=== PATIENT | male | born 1965 | race Caucasian/White ===

== ENCOUNTER 2022-12-10 16:58 | Inpatient (IN) | payer SELFPAY ==
[2022-12-10] VITALS (23 sets, daily range): BP systolic 164; BP diastolic 117; PULSE 97–117; RESP 12–30; O2SAT 95–100
--- NOTE | ~2022-12-10 | US_ITS ---
EXAMINATION: US venous doppler [facility] DATE: 12/10/2022 20:02 INDICATION: +dimer, BLE swelling . TECHNIQUE: Grayscale images without and with compression and Doppler images of the bilateral lower ex tremity veins were obtained. COMPARISON: None FINDINGS: The right common femoral vein, profunda (deep) femoral vein, femoral vein, popliteal vein, peroneal v ein, posterior tibial veins, gastrocnemius vein, and greater saphenous vein are patent. The left common femoral vein, profunda (deep) femoral vein, femoral vein, popliteal vein, peroneal v ein, posterior tibial veins, gastrocnemius vein, and greater saphenous vein are patent. IMPRESSION: 1. Patent bilateral lower extremity veins. No evidence of deep venous thrombosis. Reviewed, dictated and finalized at location K. IMPRESSION: 1. Patent bilateral lower extremity veins. No evidence of deep venous thrombos is.
--- NOTE | ~2022-12-10 | XR_ITS ---
EXAMINATION: XR chest 2V Exam Date/Time: 12/10/2022 17:18 CDT HISTORY: SOB, CP, cough Comparison: None. RESULT: Lines, tubes, and devices: None. Lungs and pleura: Mild diffuse peripheral reticular opacities. Trace posterior costophrenic angle bl unting. Cardiomediastinal silhouette: Cardiomegaly. Other: No acute osseous or upper abdominal finding. IMPRESSION: Mild interstitial edema. Trace bilateral effusions. Cardiomegaly. Reviewed, dictated and finalized at location K.
--- NOTE | ~2022-12-10 | CT_ITS ---
EXAMINATION: CTA chest PE protocol DATE: 12/10/2022 19:16 INDICATION: CP, SOB, +dimer TECHNIQUE: Computed tomography angiography (CTA) of the chest was performed with 100 mL Omnipaque-350 intravenous contrast timed to evaluate the pulmonary arteries. Coronal maximum intensity projection 3D-reconstructions were created by the technologist. The dose-length product (DLP) was 250.24 mGy-cm. Automated exposure control and iterative reconstruction technique were employed. COMPARISON: X-ray chest, same date. FINDINGS: Lung parenchyma and airways: Minimal interlobular septal thickening. Bilateral dependent atelectasis/ edema. Pleura: Small volume right pleural fluid collection. Thoracic inlet, axillae and chest wall: Unremarkable. Thoracic aorta: Normal. Mediastinum: Normal. Heart and pericardium: Moderate cardiomegaly. Aortic valve calcification. Coronary artery calcifications: Absent. Upper abdomen: Cirrhotic liver changes. Mesenteric edema. Simple left renal cysts. Bones: No acute osseous finding. Presumed chronic moderate wedge deformity at L2. Pulmonary arteries: Study quality: Adequate. No pulmonary emboli detected. IMPRESSION: No CT evidence of acute pulmonary embolus. Mild interstitial edema. Small right pleural effusion. Reviewed, dictated and finalized at location K.
--- NOTE | 2022-12-10 17:00 | ECG_ITS ---
Measurements Intervals [place] Rate: 114 P: 63 CT: 158 QRS: 124 QRSD: 161 T: 40 QT: 368 QTc: 507 Interpretive Statements SINUS TACHYCARDIA WITH OCCASIONAL SUPRAVENTRICULAR PREMATURE COMPLEXES POSSIBLE LEFT ATRIAL ENLARGEMENT [-0.1mV P WAVE IN V1/V2] RIGHT BUNDLE BRANCH BLOCK [120+ ms QRS DURATION, UPRIGHT V1, 40+ ms S IN I/aVL/V4/V5/V6] LEFT POSTERIOR FASCICULAR BLOCK [QRS AXIS > 109, INFERIOR Q] NO PREVIOUS ECG AVAILABLE FOR COMPARISON Electronically Signed On 12-10-2022 19:39:45 CDT by Alyssa Benitez M.D.
--- NOTE | 2022-12-10 17:14 | ED.SOB ---
HPI - SOB/Dyspnea General Chief Complaint: Shortness of Breath/Dyspnea <JEFFERSON Kim Last Filed: 12/10/22 20:14> Stated Complaint: SOB <JEFFERSON Kim Last Filed: 12/10/22 20:14> Time Seen by Provider: 12/10/22 17:00 <JEFFERSON Kim Last Filed: 12/10/22 20:14> Source: patient <JEFFERSON Kim Last Filed: 12/10/22 20:14> Mode of arrival: ambulatory <JEFFERSON Kim Last Filed: 12/10/22 20:14> Limitations: no limitations <JEFFERSON Kim Last Filed: 12/10/22 20:14> History of Present Illness HPI Narrative: Patient is a 57 y/o male with PMH of COPD, CAD with remote Hx of CABG, and current everyday smoking, who presents to the ED with c/o SOB. Patient reports having progressively worsening SOB over the last 4-5 days. Worse with exertion, better with rest. He has tried using his albuterol inhaler without much relief. He also reports having wheezing, lower extremity edema, cough/congestion for the past 1 week, and intermittent CP. He states he last experienced the chest pain last night, which lasted for approximately 10 minutes before resolving on its own. Described the pain as sharp. Patient denies any chest pain currently. Denies any fever. Denies lower extremity pain. Patient does not currently see a coder. <JEFFERSON Kim Last Filed: 12/10/22 20:14> Related Data Allergies/Adverse Reactions: Allergies Allergy/AdvReac Type Severity Reaction Status Date / Time tramadol Allergy Itching Verified 12/10/22 17:07 <JEFFERSON Kim Last Filed: 12/10/22 20:14> Review of Systems Review of Systems: CONSTITUTIONAL: Denies fever, chills, or sweats. ENT: See HPI. CARDIOVASCULAR: See HPI. RESPIRATORY: See HPI. GASTROINTESTINAL: Denies abdominal pain, nausea, vomiting. <Cinthia Maier PA-C - Last Filed: 12/10/22 20:14> All systems reviewed & are unremarkable except as noted in HPI and below <Cinthia Maier PA-C - Last Filed: 12/10/22 20:14> FOR[facility]LY [facility] Past Medical History Medical History: Medical History Bifascicular block Cirrhosis COPD (chronic obstructive pulmonary disease) Family history of cardiomyopathy Nonsustained ventricular tachycardia Recovering alcoholic in remission Tobacco use <JEFFERSON Kim Last Filed: 12/10/22 20:14> Surgical History Surgical History: Surgical History History of open heart surgery age 4 <JEFFERSON Kim Last Filed: 12/10/22 20:14> Family History Family History: Family History (Updated 12/13/22 @ 11:32 by Alyssa Benitez MD) Father Heart disease of heart failure in his mid 50s Other Heart disease Uncle had heart failure and of sudden cardiac in his mid 50s Daughter Systemic sclerosis Daughter of this disease <JEFFERSON Kim Last Filed: 12/10/22 20:14> Social History Social History: Social History Social History: Lives at home with significant other Smoking packs per day: 1 Smoking cigarettes per day: 20.0 Years smoked: 40 Smoking pack-years: 40.00 Smoking status: Current every day smoker Tobacco type: cigarettes Second hand tobacco smoke exposure: Yes Alcohol intake: never Drinks per week: 10 Alcohol use details: 2-4 drinks per day, 2-3 days per week Substance use: never Substance use type: does not use Lack of Transportation: No Lack of Food: Never True Current Housing: I Have Housing Concerned About Future Housing: No Difficulty Paying Gas/Electric Bills: No Difficulty Paying for Meds: No Currently Unemployed: No Education: High School Diploma/GED Difficulty w/ Childcare or Family Care: No Gender identity (if verbalized by the patient): Talha
--- NOTE | 2022-12-10 17:19 | PC.NURSE ---
Patient off unit to radiology.
[2022-12-10 17:40] LABS: Basophils Percent Auto 0.4 % (0.2-1.2); Eosinophils Absolute Auto 0.1 K/mm3 (0-0.3); Hematocrit 44.4 % (42.0-52.0); Hemoglobin 14.8 g/dL (14.0-18.0); Immature Granulocyte Absolute 0.02 K/mm3 (0.00-0.031); Immature Granulocyte Percent A 0.3 % (0-0.5); Lymphocytes Percent Auto 17.2 % (18.3-44.2); Mean Corpuscular HGB Conc 33.3 g/dl (32-36); Mean Corpuscular Hemoglobin 32.2 pg (26-34); Mean Corpuscular Volume 96.5 fl (80-100); Mean Platelet Volume 10.4 fl (7.4-10.4); Monocytes Absolute Auto 0.6 K/mm3 (0.1-0.6); Neutrophils Absolute Auto 5.1 K/mm3 (1.3-6.7); Neutrophils Percent Auto 73.1 % (45.5-73.1); Platelet Count Result 179 k/mm3 (150-375); Red Cell Distribution Width 12.7 % (11.5-14.5)
--- NOTE | 2022-12-10 17:42 | PC.NURSE ---
RT at bedside to administer ordered breathing treatment,
[2022-12-10] MEDS: IPRATROPIUM BR 0.02% INH SOLN 0.5 MG/2.5 ML VIAL 1.5 MG INHALATION (17:43)
[2022-12-10] MEDS: LEVALBUTEROL NEB 1.25 MG/3 ML 2.5 MG INHALATION (17:44)
[2022-12-10 17:50] LABS: Prothrombin Time 13.8 Seconds (11.1-14.7)
[2022-12-10 17:51] LABS: Partial Thromboplastin Time 30.1 SECONDS (22.3-36.8)
[2022-12-10 17:52] LABS: Alanine Aminotransferase 48 U/L (6-50); Albumin Level 4.1 g/dL (3.5-5.1); Alkaline Phosphatase 115 U/L (38-126); Anion Gap 5 mmol/L (8-16); Aspartate Amino Transferase 49 U/L (17-59); Bilirubin,Total 0.7 mg/dL (0.2-1.3); Blood Urea Nitrogen 13 mg/dL (9-20); Calcium 8.9 mg/dL (8.4-10.2); Carbon Dioxide 26 mmol/L (22-30); Chloride 109 mmol/L (98-107); Estimated CRCL calculation 75 ml/min; Estimated Glomerular Filt Rate > 60; Glucose 100 mg/dL (65-110); Magnesium 2.1 mg/dL (1.6-2.3); Potassium 3.8 mmol/L (3.4-5.0); Sodium 140 mmol/L (137-145)
[2022-12-10 17:56] LABS: D Dimer 1.22 ug/mL (<0.48)
[2022-12-10 18:13] LABS: Influenza A QL RT-PCR Negative (Negative); Influenza B QL RT-PCR Negative (Negative); SARS-CoV-2 RNA PCR Negative (Negative)
[2022-12-10 18:15] LABS: NT Pro B Type Natriuretic Pept 14000 pg/mL (19.9-100); Troponin I 0.075 ng/mL (0.000-0.034)
--- NOTE | 2022-12-10 19:13 | PC.NURSE ---
Patient off unit to radiology.
--- NOTE | 2022-12-10 19:45 | PC.NURSE ---
US at bedside for doppler study .
--- NOTE | 2022-12-10 19:57 | PM.IMHP ---
H&P: HPI History of Present Illness Date/Time: 12/10/22 19:57 Chief Complaint: Shortness of breath increasing over several days Narrative: This is a 57 year old male patient who presented to ER with progressive dyspnea on exertion worsening over the past week. Patient has history of childhood open heart surgery though he could not recall the procedure. He denies any history of AL. His father had CHF so patient is familiar with this diagnosis. Patient reports periodic non-productive cough. He states he has no current PCP but plans to reestablish with prior PCP after hospital discharge. Patient mentioned left inner thigh pain with ambulation for the last couple days and improving bilateral lower extremity swelling. Patient denies any chest pain at this time but reports he had brief episode of chest pain about 24 hours ago. Patient denies any other symptoms, states he takes no prescription medications. Review of Systems Review of Systems: All systems reviewed & are unremarkable except as noted in HPI and below PMFSH Past Medical History Medical History COPD (chronic obstructive pulmonary disease) Surgical History Surgical History History of open heart surgery age 4 Social History Social History Social History: Lives at home with significant other Smoking packs per day: 1 Smoking cigarettes per day: 20.0 Years smoked: 40 Smoking pack-years: 40.00 Smoking status: Current every day smoker Tobacco type: cigarettes Second hand tobacco smoke exposure: Yes Alcohol intake: current Drinks per week: 10 Alcohol use details: 2-4 drinks per day, 2-3 days per week Substance use: current Substance use type: marijuana Lack of Transportation: No Lack of Food: Never True Current Housing: I Have Housing Concerned About Future Housing: No Difficulty Paying Gas/Electric Bills: No Difficulty Paying for Meds: No Currently Unemployed: No Gender identity (if verbalized by the patient): Male Sexual Orientation (if Verbalized by the Patient): Straight or Heterosexual Meds Home Medications and Allergies Allergies Allergy/AdvReac Type Severity Reaction Status Date / Time tramadol Allergy Itching Verified 12/10/22 17:07 Vital Signs Vital Signs - 24 hr 12/10/22 17:01 12/10/22 17:09 12/10/22 17:09 Pulse Rate 115 H 106 H Respiratory Rate 17 Blood Pressure 164/117 H Pulse Oximetry 97 Oxygen Delivery Room Air Room Air 12/10/22 17:03 12/10/22 17:28 12/10/22 17:34 Pulse Rate 115 H 99 98 Respiratory Rate 17 16 14 Blood Pressure Pulse Oximetry 97 96 Oxygen Delivery 12/10/22 17:48 12/10/22 18:00 12/10/22 18:15 Pulse Rate 98 98 98 Respiratory Rate 15 16 Blood Pressure Pulse Oximetry 100 100 100 Oxygen Delivery 12/10/22 18:30 12/10/22 18:45 12/10/22 19:00 Pulse Rate 105 H 114 H Respiratory Rate 20 22 H 20 Blood Pressure Pulse Oximetry 100 100 97 Oxygen Delivery Exam Narrative: GENERAL: Well appearing, well-nourished, non-toxic, in no acute distress. HEAD: Normocephalic, atraumatic. NECK: Supple. No adenopathy, no masses. No JVD. RESPIRATORY: Airway patent, respirations nonlabored. Clear lung sounds, no wheezes or rhonchi noted. No stridor. CARDIOVASCULAR: Borderline tachycardic with regular rhythm, murmur noted. Peripheral pulses 2+ and equal bilaterally. ABDOMINAL: Soft, nontender, nondistended, no hepatosplenomegaly. Normoactive BS. MUSCULOSKELETAL: Moves all extremities. Strength/ROM intact without gross deformities. 1+ pitting edema to lower extremities bilaterally, symmetric. No calf tenderness. SKIN: Warm, dry, normal color. No rashes. NEURO: A&O X3. Speech clear. Cranial nerves II-XII grossly intact. Steady gait. No ataxic movements. PSYCHIATRIC: Appropri
[2022-12-10] MEDS: FUROSEMIDE INJ 40 MG/4 ML VIAL IV PUSH (20:06)
[2022-12-10 21:03] LABS: Troponin I 0.095 ng/mL (0.000-0.034)
--- NOTE | 2022-12-10 21:45 | PC.NURSE ---
Hospitalist HELP DESK AGENT at bedside to assess pt.
[2022-12-10 21:56] LABS: Magnesium 2.1 mg/dL (1.6-2.3)
[2022-12-10] MEDS: carvediloL 12.5 MG TABLET PO (22:46)
--- NOTE | 2022-12-10 23:07 | PC.NURSE ---
Patient report given to DAY Hall. All questions answered and care of patient transferred.
[2022-12-10 23:44] LABS: Troponin I 0.082 ng/mL (0.000-0.034)
[2022-12-10] MEDS: ASPIRIN 81 MG CHEWABLE TABLET 324 MG PO (23:51)
[2022-12-11] VITALS (21 sets, daily range): BP systolic 100–121; BP diastolic 64–86; PULSE 58–94; RESP 16–20; TEMP 36.2–36.7; O2SAT 96–99; BMI 23.3
--- NOTE | 2022-12-11 01:50 | ADMGEN ---
This patient, Tulio Marroquin, was admitted to IMU Room 232-01. Patient/family oriented to hospital policies and general routines including ID bracelet, bed and alarms, visiting hours, pain management, procedures, bathroom and other care routines, personal items, smoking policy, room service/diet, and visiting hours. Information on how to activate the Rapid Response Team has been discussed. Patient/Family are encouraged to report perceived risks to care and to ask questions if they do not understand what they are told or what they should do.
[2022-12-11 05:08] LABS: Hematocrit 42.3 % (42.0-52.0); Hemoglobin 13.9 g/dL (14.0-18.0); Mean Corpuscular HGB Conc 32.9 g/dl (32-36); Mean Corpuscular Hemoglobin 31.8 pg (26-34); Mean Corpuscular Volume 96.8 fl (80-100); Mean Platelet Volume 10.5 fl (7.4-10.4); Platelet Count Result 161 k/mm3 (150-375); Red Blood Count 4.37 M/mm3 (4.6-6.20); Red Cell Distribution Width 12.5 % (11.5-14.5); White Blood Count 5.2 K/mm3 (4.5-10.0)
[2022-12-11 05:16] LABS: Alanine Aminotransferase 38 U/L (6-50); Albumin Level 3.5 g/dL (3.5-5.1); Alkaline Phosphatase 85 U/L (38-126); Anion Gap 5 mmol/L (8-16); Aspartate Amino Transferase 40 U/L (17-59); Bilirubin,Total 0.9 mg/dL (0.2-1.3); Blood Urea Nitrogen 14 mg/dL (9-20); Calcium 8.4 mg/dL (8.4-10.2); Carbon Dioxide 32 mmol/L (22-30); Chloride 101 mmol/L (98-107); Estimated CRCL calculation 67 ml/min; Estimated Glomerular Filt Rate > 60; Glucose 124 mg/dL (65-110); Magnesium 2.1 mg/dL (1.6-2.3); Potassium 3.6 mmol/L (3.4-5.0); Sodium 138 mmol/L (137-145)
--- NOTE | 2022-12-11 06:00 | ECHO_ITS ---
Patient Info Name: Tulio Marroquin Age: 57 years : 1965 Gender: Male Ht: 64 in Wt: 140 lbs BSA: 1.70 m2 HR: 86 bpm BP: 107 / 70 mmHg Heart Rhythm: Sinus Rhythm Technical Quality: Good Exam Date: 12/11/2022 10:18 AM Exam Location: [facility] Patient Status: Outpatient Admit Date: 12/10/2022 Staff Ordering Physician: Cinthia Maier PA-C Animal Trapper: Seble Aaron RDCS Attending Provider: Stephanie Juares DO Referring Physician: Livier RM; Exam Type: CA echo doppler color flow Study Info Indications - acute chf/RODRIGUEZ/BNP Complete two-dimensional, color flow and Doppler transthoracic echocardiogram is performed. Summary 1. Complete two-dimensional, color flow and Doppler transthoracic echocardiogram is performed. 2. The left ventricle is of normal size with moderate concentric hypertrophy. There is severe global hypokinesis present with a visual estimate ejection fraction of 15-20%. Grade 2 diastolic dysfunction is present. 3. The right ventricle is moderately dilated with severe hypokinesis. 4. Left atrial chamber dimension is mildly enlarged. 5. Right atrial chamber dimension is mildly enlarged. 6. There is trace mitral valve regurgitation. 7. There is trace tricuspid valve regurgitation. 8. There is moderate pulmonic regurgitation. 9. Pulmonary pressure could not be evaluated on this study. 10. Questionable color-flow from [id number] at the atrial level; cannot rule out an ASD verses right atrial venous inflow. 11. Evaluation of the ventricular apex for a VSD was not performed on this study. 12. Normal sinus rhythm. 13. Recommend a limited Doppler, color flow and bubble study, specifically looking for a VSD or ASD. Left Ventricle Left ventricular chamber dimension is normal. Left ventricular systolic function is normal, estimated at 15-20%. There is moderately increased left ventricular wall thickness. Left ventricular septal wall motion is normal. The left ventricular diastolic function is grade II diastolic dysfunction. Right Ventricle Right ventricular chamber dimension is moderately enlarged. Right ventricular systolic function is reduced. Left Atria Left atrial chamber dimension is mildly enlarged. Right Atria Right atrial chamber dimension is mildly enlarged. Aortic Valve The aortic valve is trileaflet. There is no aortic valve sclerosis. There is no aortic valve stenosis. There is no aortic valve regurgitation. Pulmonic Valve The pulmonic valve is normal. There is no pulmonic valve stenosis. There is moderate pulmonic regurgitation. Mitral Valve The mitral valve has normal leaflets. There is no mitral valve stenosis. There is trace mitral valve regurgitation. Tricuspid Valve The tricuspid valve leaflets are normal. There is no significant tricuspid valve stenosis. There is trace tricuspid valve regurgitation. No pulmonary hypertension, estimated pulmonary arterial systolic pressure is 26 mmHg. Pericardium/Pleural The pericardium appears normal. There is no pericardial effusion. Inferior Vena Cava Normal inferior vena cava with >50% collapse upon inspiration consistent with Empty right atrial pressure, 10 mmHg. Aorta The aortic root size at the sinus of Valsalva is normal. The prox ascending aorta size is normal. Left Ventricular Outflow Tract Name Value Normal LVOT 2D
[2022-12-11] MEDS: ASPIRIN 81 MG CHEWABLE TABLET PO (09:17)
[2022-12-11] MEDS: FUROSEMIDE INJ 40 MG/4 ML VIAL IV PUSH ×2 (09:18→16:48)
[2022-12-11] MEDS: carvediloL 12.5 MG TABLET PO (09:18)
[2022-12-11] MEDS: ENOXAPARIN 40 MG/0.4 ML SYRINGE SUB-Q (09:18)
[2022-12-11] MEDS: PANTOPRAZOLE SOD SESQUIHYDRATE 20 MG TAB PO ×2 (09:18→20:20)
--- NOTE | 2022-12-11 09:31 | PM.IMPN ---
Progress Note: A&P Assessment and Plan (1) Congestive heart failure: Qualifiers: Heart failure chronicity: acute Heart failure type: unspecified Qualified Code(s): I50.9 - Heart failure, unspecified Code(s): I50.9 - Heart failure, unspecified Status: Acute Assessment and Plan: New onset CHF with pulmonary edema and leg edema. Echo ordered. IV Lasix 40 mg BID for now. Cardiology consulted. (2) Elevated troponin: Code(s): R77.8 - Other specified abnormalities of plasma proteins Status: Acute Assessment and Plan: Stable with mild decrease at 6 hour trop, Cardiology consulted (3) Dyspnea on exertion: Code(s): R06.09 - Other forms of dyspnea Status: Acute Assessment and Plan: due to new onset CHF, no supplemental oxygen needed at this time. (4) HTN (hypertension): Code(s): I10 - Essential (primary) hypertension Status: Acute Assessment and Plan: Started Coreg yesterday. Cardiology consulted. Echo ordered. Plan Diuresis Low sodium diet Echocardiogram Consult Cardiology--appreciate recommendations Time Spent With Patient Time with patient: 25 - 35 minutes Subjective Date/time seen: 12/11/22 09:31 Interval history: 12/10: Chief Complaint: Shortness of breath increasing over several days Narrative: This is a 57 year old male patient who presented to ER with progressive dyspnea on exertion worsening over the past week.? Patient has history of childhood open heart surgery though he could not recall the procedure.? He denies any history of ME.? His father had CHF so patient is familiar with this diagnosis.? Patient reports periodic non-productive cough.? He states he has no current PCP but plans to reestablish with prior PCP after hospital discharge.? Patient mentioned left inner thigh pain with ambulation for the last couple days and improving bilateral lower extremity swelling.? Patient denies any chest pain at this time but reports he had brief episode of chest pain about 24 hours ago.? Patient denies any other symptoms, states he takes no prescription medications.? 12/11: Patient reports that he experienced reaccumulation of swelling in his legs and difficulty breathing overnight. He prefers to lay completely flat to sleep but noted to have wheezing upon awakening. Patient had initially declined SHELLY Hose at night but these were recommended due to swelling in the legs and patient agreed to have the placed today. Breathing treatments changed to scheduled instead of PRN. IV Lasix 40 mg b.i.d. at this time. Cardiology consulted due to frequent PVCs on electronic field service engineer, positive troponins and new onset AFib. Appreciate any recommendations. Review of Systems Review of Systems: All systems reviewed & are unremarkable except as noted in HPI and below Exam Narrative: GENERAL: Well appearing, well-nourished, non-toxic, minimal respiratory difficulty after awakening while lying flat. HEAD: Normocephalic, atraumatic. NECK: Supple. No adenopathy, no masses. No JVD. RESPIRATORY: Airway patent, respirations nonlabored. Clear lung sounds, no wheezes or rhonchi noted. No stridor. CARDIOVASCULAR: Regular rate with irregular rhythm, murmur noted. Peripheral pulses 2+ and equal bilaterally. Cardiac telemetry shows sinus rhythm rate approximately 60 with frequent unifocal PVCs ABDOMINAL: Soft, nontender, nondistended, no hepatosplenomegaly. Normoactive BS. MUSCULOSKELETAL: Moves all extremities. Strength/ROM intact without gross deformities. 1+ pitting edema to lower extremities bilaterally, symmetric. No calf tenderness. SKIN: Warm, dry, normal color. No rashes. NEURO: A&O X3. Speech clear. Cranial nerves II-XII grossly intact. Steady gait. No ataxic movements. PSYCHIATRIC: Appropriate mood and affect. Normal interaction. Objective Data Vital Signs Vital Signs: Vital Signs - 24 hr 12/10/22 17:01 12/10/22 17:09 12/10/22 17:09 Temperature
[2022-12-11] MEDS: ALBUTEROL SULFATE NEB 2.5 MG/3 ML INH INHALATION ×3 (10:04→20:53)
[2022-12-11] MEDS: IPRATROPIUM BR 0.02% INH SOLN 0.5 MG/2.5 ML VIAL INHALATION ×3 (10:05→20:53)
--- NOTE | 2022-12-11 13:04 | PM.CNCAR ---
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 Perhaps and alcoholic cardiomyopathy or idiopathic cardiomyopathy, or perhaps related to some residual of his congenital heart problems. No strong evidence of CAD. Patient feeling better with diuresis. Elevated troponins are likely secondary to CHF not CAD. --agree with diuresis with IV furosemide. --Daily BMP --Add Kcl (pt having cramps) --start guideline directed medical therapy. The patient's blood pressure soft and likely will not tolerate all usual medications immediately. --start with metoprolol (rather than carvedilol) due to ventricular arrhythmias, as it may be a better anti-arrhythmic. --Add spironolactone --later and Entresto and Farxiga, if affordable --eventual ischemia evaluation (2) Cardiomyopathy: Code(s): I42.9 - Cardiomyopathy, unspecified Status: Acute Assessment and Plan: Apparently a new cardiomyopathy. --limited echo study to evaluate for residual VSD and any ASD, bubble study --obtain records from [facility] cardiology --perhaps eventually an MRI of the heart? 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 --LImited Echo for further eval (4) Nonsustained ventricular tachycardia: Code(s): I47.29 - Other ventricular tachycardia Status: Acute Assessment and Plan: Frequent PVCs and nonsustained ventricular tachycardia noted. At risk of sudden cardiac . --add beta-yamil --Discussed LifeVest on discharge (5) Bifascicular block: Code(s): I45.2 - Bifascicular block Status: Acute Assessment and Plan: Bifascicular block, asymptomatic, noted. (6) Tobacco use: Code(s): Z72.0 - Tobacco use Status: Acute Assessment and Plan: Tobacco cessation encouraged (7) Cirrhosis: Code(s): K74.60 - Unspecified cirrhosis of liver Status: Acute Assessment and Plan: CT suggested patient has cirrhosis (8) Recovering alcoholic in remission: Code(s): F10.21 - Alcohol dependence, in remission Status: Acute Assessment and Plan: Previously was an alcoholic, now drinks 2-4 drinks per day, 2 to 3 times a week. --Abstinence recommended History of Present Illness History of Present Illness Consult date/time: 12/11/22 13:04 Reason For Visit: Acute CHF, RODRIGUEZ, elevated Troponin Narrative: Tulio Tobar is a 57 y.o. male whom we were asked to see at the request nurse Curly valadez for our advice and opinion regarding new onset of CHF, biventricular block with frequent PVCs and positive troponins, consultation Mr. Meyer has a history of open-heart surgery for congenital heart disease, Hypertension, COPD and ongoing tobacco use. The patient came to the emergency room yesterday with increasing shortness of breath for a week, cough, PND, and lower extremity edema. He told others that he had some intermittent chest discomfort but denied any chest discomfort to me.. He was admitted with new CHF and started on furosemide 40 mg IV push b.i.d.. The patient states he had what sounds to be a VSD repair when he was 4 years old. He had seen a application design engineer at [facility] in [facility] 5 -6 years ago. He had a stress test that was ?fine ? and had a catheterization that showed everything was okay, although he had ?2 arteries instead of 1? so
[2022-12-11] MEDS: POTASSIUM CHLORIDE 20 MEQ ER TABLET PO (16:52)
[2022-12-11] MEDS: METOPROLOL TARTRATE 25 MG TABLET PO (20:20)
[2022-12-12] VITALS (24 sets, daily range): BP systolic 112–127; BP diastolic 74–90; PULSE 53–88; RESP 14–20; TEMP 35.7–36.3; O2SAT 95–99
[2022-12-12] MEDS: ALBUTEROL SULFATE NEB 2.5 MG/3 ML INH INHALATION ×4 (02:01→21:19)
[2022-12-12] MEDS: IPRATROPIUM BR 0.02% INH SOLN 0.5 MG/2.5 ML VIAL INHALATION ×4 (02:01→21:19)
[2022-12-12 06:11] LABS: Hemoglobin 14.3 g/dL (14.0-18.0); Mean Corpuscular HGB Conc 32.5 g/dl (32-36); Mean Corpuscular Volume 98.4 fl (80-100); Mean Platelet Volume 10.3 fl (7.4-10.4); Platelet Count Result 164 k/mm3 (150-375); Red Blood Count 4.47 M/mm3 (4.6-6.20); Red Cell Distribution Width 12.9 % (11.5-14.5); White Blood Count 5.8 K/mm3 (4.5-10.0)
[2022-12-12 06:29] LABS: Alanine Aminotransferase 35 U/L (6-50); Albumin Level 3.6 g/dL (3.5-5.1); Alkaline Phosphatase 101 U/L (38-126); Anion Gap 4 mmol/L (8-16); Aspartate Amino Transferase 36 U/L (17-59); Bilirubin,Total 0.4 mg/dL (0.2-1.3); Blood Urea Nitrogen 22 mg/dL (9-20); Calcium 8.6 mg/dL (8.4-10.2); Carbon Dioxide 34 mmol/L (22-30); Chloride 99 mmol/L (98-107); Estimated CRCL calculation 61 ml/min; Estimated Glomerular Filt Rate > 60; Glucose 110 mg/dL (65-110); Potassium 3.5 mmol/L (3.4-5.0); Sodium 137 mmol/L (137-145)
--- NOTE | 2022-12-12 08:00 | ECHO_ITS ---
Patient Info Name: Tulio Marroquin Age: 57 years : 1965 Gender: Male Ht: 64 in Wt: 135 lbs BSA: 1.67 m2 HR: 63 bpm BP: 118 / 74 mmHg Technical Quality: Good Exam Date: 12/12/2022 11:16 AM Exam Location: [facility] Patient Status: Inpatient Admit Date: 12/12/2022 Staff Ordering Physician: Alyssa Benitez MD Teacher Public Health: Tere Whitehead RDCS Attending Provider: Stephanie Juares DO Referring Physician: Emmanuel GRAY; Exam Type: CA echo dop bubble study w con Study Info Indications - R/O VSD AND ASD - VSD REPAIR - H/O CONGENTIAL HEART DISEASE Limited two-dimensional transthoracic echocardiogram is performed with agitated saline. Limited two-dimensional transthoracic echocardiogram is performed with contrast. Contrast/Agitated Saline Contrast/Ag. Saline: Agitated Saline Amount: 20.00 ml Administered By: Rose Sears [facility] Existing IV Access: Yes Contrast/Ag. Saline: Definity Amount: 2.00 ml Administered By: Rose Sears Existing IV Access: Yes Summary 1. Somewhat redundant/aneurysmal appearing interatrial septum. 2. Agitated saline contrast study is consistent with shunt/PFO at this level. 3. No evidence of VSD seen with definity contrast injection. Report Signatures
[2022-12-12] MEDS: ASPIRIN 81 MG CHEWABLE TABLET PO (08:47)
[2022-12-12] MEDS: PANTOPRAZOLE SOD SESQUIHYDRATE 20 MG TAB PO ×2 (08:48→22:13)
[2022-12-12] MEDS: SPIRONOLACTONE 25 MG TABLET PO (08:48)
[2022-12-12] MEDS: METOPROLOL TARTRATE 25 MG TABLET PO ×2 (08:48→22:13)
[2022-12-12] MEDS: POTASSIUM CHLORIDE 20 MEQ ER TABLET PO ×2 (08:49→17:06)
[2022-12-12] MEDS: FUROSEMIDE INJ 40 MG/4 ML VIAL IV PUSH (08:49)
[2022-12-12] MEDS: ENOXAPARIN 40 MG/0.4 ML SYRINGE SUB-Q (08:49)
--- NOTE | 2022-12-12 10:00 | PM.PNCARD ---
Progress Note: A&P Assessment and Plan (1) Acute combined systolic and diastolic ACC/AHA stage C congestive heart failure: Code(s): I50.41 - Acute combined systolic (congestive) and diastolic (congestive) heart failure Status: Acute Assessment and Plan: Patient presents with new onset of mild CHF, biventricular enlargement and hypokinesis. Perhaps and alcoholic cardiomyopathy or idiopathic cardiomyopathy, or perhaps related to some residual of his congenital heart problems. No strong evidence of CAD. Patient feeling better with diuresis. Elevated troponins are likely secondary to CHF not CAD. --Diuresed well with IV furosemide. Will shift to p.o. today. --Daily BMP --Tolerating spironolactone and BB. He is uninsured, so Entresto and jardiance will not be affordable. Will start lisinopril instead. --LifeVest ordered, applying for patient assistance --eventual ischemia evaluation (2) Cardiomyopathy: Code(s): I42.9 - Cardiomyopathy, unspecified Status: Acute Assessment and Plan: Apparently a new cardiomyopathy. --limited echo showed evidence of PFO, but no VSD --perhaps eventually an MRI of the heart? 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 (4) Nonsustained ventricular tachycardia: Code(s): I47.29 - Other ventricular tachycardia Status: Acute Assessment and Plan: Frequent PVCs and nonsustained ventricular tachycardia noted. At risk of sudden cardiac . --add beta-yamil --LifeVest ordered (5) Bifascicular block: Code(s): I45.2 - Bifascicular block Status: Acute Assessment and Plan: Bifascicular block, asymptomatic, noted. (6) Tobacco use: Code(s): Z72.0 - Tobacco use Status: Acute Assessment and Plan: Tobacco cessation encouraged (7) Cirrhosis: Code(s): K74.60 - Unspecified cirrhosis of liver Status: Acute Assessment and Plan: CT suggested patient has cirrhosis (8) Recovering alcoholic in remission: Code(s): F10.21 - Alcohol dependence, in remission Status: Acute Assessment and Plan: Previously was an alcoholic, now drinks 2-4 drinks per day, 2 to 3 times a week. --Abstinence recommended Subjective Date/time seen: 12/12/22 10:00 Interval history: Cardiology follow up for CHF Feeling better today. Swelling has nearly resolved. He is less short of breath today. Review of Systems Review of Systems: All systems reviewed & are unremarkable except as noted in HPI and below Exam Const: General: comfortable, no acute distress, alert and awake Orientation/consciousness: patient oriented x3 HENMT: Head: normal to inspection Eyes: General: appearance normal, both eyes and all related structures Pupils: Equal, round and reactive pupils present Neck: Neck: normal visual inspection, supple and no JVD Carotids: normal carotid upstroke Resp: Effort & Inspection: normal respiratory effort Auscultation: not clear to auscultation bilaterally, no rales and wheezes expiratory wheezes Cardio: Rate: regular rate Rhythm: regular rhythm Heart sounds: S1 normal heart sound present, S2 normal heart sound present and no murmurs GI: Auscultation: normal bowel sounds Skin: General skin exam: normal color Neuro: General: patient oriented x3 Cranial nerves: Yes Equal, round and reactive pupils present Extrem: General: normal to inspection Psych: Appearance: grossly normal Mental Status: mental status grossly normal Objective Data Vital Signs Vital Signs: Vital Signs - 24 hr 12/11/22 10:08 12/11/22 10:26 12/11/22 12:00 Temperature 36.7 C P
[2022-12-12] MEDS: PERFLUTREN LIPID MICROSPHERES 1.5 ML VIAL DILUTED TO 10 ML TOTAL VOLUME IV PUSH (11:27)
--- NOTE | 2022-12-12 11:55 | PM.IMPN ---
Progress Note: A&P Assessment and Plan (1) Acute combined systolic and diastolic ACC/AHA stage C congestive heart failure: Code(s): I50.41 - Acute combined systolic (congestive) and diastolic (congestive) heart failure Status: Acute Assessment and Plan: Patient presents with new onset of mild CHF, biventricular enlargement and hypokinesis. Perhaps and alcoholic cardiomyopathy or idiopathic cardiomyopathy, or perhaps related to some residual of his congenital heart problems. No strong evidence of CAD. Patient feeling better with diuresis. Elevated troponins are likely secondary to CHF not CAD. --agree with diuresis with IV furosemide. --Daily BMP --Add Kcl (pt having cramps) --start guideline directed medical therapy. The patient's blood pressure soft and likely will not tolerate all usual medications immediately. --start with metoprolol (rather than carvedilol) due to ventricular arrhythmias, as it may be a better anti-arrhythmic. --Add spironolactone --later and Entresto and Farxiga, if affordable --eventual ischemia evaluation (2) Cardiomyopathy: Code(s): I42.9 - Cardiomyopathy, unspecified Status: Acute Assessment and Plan: Apparently a new cardiomyopathy. --limited echo study to evaluate for residual VSD and any ASD, bubble study --obtain [facility] from [facility] cardiology --perhaps eventually an MRI of the heart? 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 --LImited Echo for further eval (4) Nonsustained ventricular tachycardia: Code(s): I47.29 - Other ventricular tachycardia Status: Acute Assessment and Plan: Frequent PVCs and nonsustained ventricular tachycardia noted. At risk of sudden cardiac . --add beta-yamil --Discussed LifeVest on discharge (5) Bifascicular block: Code(s): I45.2 - Bifascicular block Status: Acute Assessment and Plan: Bifascicular block, asymptomatic, noted. (6) Tobacco use: Code(s): Z72.0 - Tobacco use Status: Acute Assessment and Plan: Tobacco cessation encouraged (7) Cirrhosis: Code(s): K74.60 - Unspecified cirrhosis of liver Status: Acute Assessment and Plan: CT suggested patient has cirrhosis (8) Recovering alcoholic in remission: Code(s): F10.21 - Alcohol dependence, in remission Status: Acute Assessment and Plan: Previously was an alcoholic, now drinks 2-4 drinks per day, 2 to 3 times a week. --Abstinence recommended Plan Optimize diuresis and medical management. Life vest Time Spent With Patient Time with patient: 25 - 35 minutes Subjective Date/time seen: 12/12/22 11:55 Interval history: 12/10: Chief Complaint: Shortness of breath increasing over several days Narrative: This is a 57 year old male patient who presented to ER with progressive dyspnea on exertion worsening over the past week.? Patient has history of childhood open heart surgery though he could not recall the procedure.? He denies any history of AR.? His father had CHF so patient is familiar with this diagnosis.? Patient reports periodic non-productive cough.? He states he has no current PCP but plans to reestablish with prior PCP after hospital discharge.? Patient mentioned left inner thigh pain with ambulation for the last couple days and improving bilateral lower extremity swelling.? Patient denies any chest pain at this time but reports he had brief episode of chest pain about 24 hours ago.? Patient denies any other symptoms, states he takes no prescription medications.? 12/11: Patient reports that he experienced reaccumulation of swelling in his legs and d
[2022-12-12] MEDS: FUROSEMIDE 40 MG TABLET PO (17:06)
[2022-12-13] VITALS (16 sets, daily range): BP systolic 107–116; BP diastolic 74–85; PULSE 55–81; RESP 16–20; TEMP 35.8–36.4; O2SAT 94–100
[2022-12-13] MEDS: IPRATROPIUM BR 0.02% INH SOLN 0.5 MG/2.5 ML VIAL INHALATION ×3 (01:49→13:17)
[2022-12-13] MEDS: ALBUTEROL SULFATE NEB 2.5 MG/3 ML INH INHALATION ×3 (01:49→13:17)
[2022-12-13 05:42] LABS: Hematocrit 46.2 % (42.0-52.0); Hemoglobin 15.3 g/dL (14.0-18.0); Mean Corpuscular HGB Conc 33.1 g/dl (32-36); Mean Corpuscular Hemoglobin 31.7 pg (26-34); Mean Corpuscular Volume 95.9 fl (80-100); Platelet Count Result 170 k/mm3 (150-375); Red Blood Count 4.82 M/mm3 (4.6-6.20); Red Cell Distribution Width 12.5 % (11.5-14.5); White Blood Count 6.6 K/mm3 (4.5-10.0)
[2022-12-13 05:56] LABS: Alanine Aminotransferase 33 U/L (6-50); Albumin Level 3.7 g/dL (3.5-5.1); Alkaline Phosphatase 84 U/L (38-126); Anion Gap 3 mmol/L (8-16); Aspartate Amino Transferase 36 U/L (17-59); Bilirubin,Total 0.5 mg/dL (0.2-1.3); Blood Urea Nitrogen 24 mg/dL (9-20); Calcium 8.8 mg/dL (8.4-10.2); Carbon Dioxide 32 mmol/L (22-30); Chloride 97 mmol/L (98-107); Estimated CRCL calculation 51 ml/min; Estimated Glomerular Filt Rate > 60; Glucose 98 mg/dL (65-110); Magnesium 2.1 mg/dL (1.6-2.3); Potassium 3.5 mmol/L (3.4-5.0); Sodium 132 mmol/L (137-145)
[2022-12-13] MEDS: ENOXAPARIN 40 MG/0.4 ML SYRINGE SUB-Q (09:09)
[2022-12-13] MEDS: FUROSEMIDE 40 MG TABLET PO (09:10)
[2022-12-13] MEDS: SPIRONOLACTONE 25 MG TABLET PO (09:10)
[2022-12-13] MEDS: ASPIRIN 81 MG CHEWABLE TABLET PO (09:10)
[2022-12-13] MEDS: lisinopriL 5 MG TABLET PO (09:10)
[2022-12-13] MEDS: POTASSIUM CHLORIDE 20 MEQ ER TABLET PO (09:10)
[2022-12-13] MEDS: METOPROLOL TARTRATE 25 MG TABLET PO (09:10)
[2022-12-13] MEDS: PANTOPRAZOLE SOD SESQUIHYDRATE 20 MG TAB PO (09:10)
--- NOTE | 2022-12-13 10:51 | PM.IMPN ---
Progress Note: A&P Assessment and Plan (1) Acute combined systolic and diastolic ACC/AHA stage C congestive heart failure: Code(s): I50.41 - Acute combined systolic (congestive) and diastolic (congestive) heart failure Status: Acute Assessment and Plan: Patient presents with new onset of mild CHF, biventricular enlargement and hypokinesis. Perhaps and alcoholic cardiomyopathy or familial cardiomyopathy. Does not appear to be related to his congenital heart problems. No strong evidence of CAD. Patient feeling better with diuresis. Elevated troponins are likely secondary to CHF not CAD. Euvolemic and tolerating medications. --okay for discharge after LifeVest fitted --continue metoprolol, lisinopril, spironolactone, aspirin and diuretic therapy. Continue potassium to try to keep potassium levels higher. --eventual ischemia evaluation --extensive discussion with patient about his cardiomyopathy, medications, diet, recommended alcohol abstinence, tobacco cessation, office follow-up, reviewed Life Vest etc.. (2) Cardiomyopathy: Code(s): I42.9 - Cardiomyopathy, unspecified Status: Acute Assessment and Plan: Apparently a new cardiomyopathy. --limited echo showed evidence of PFO, but no VSD --perhaps eventually an MRI of the heart? --eventual ischemia evaluation (catheterization verses Bibi. If the catheterization is performed we can do a O2 sat run to be sure there is no evidence of residual VSD but there was none noted by echo. Does have heart murmur but not typical for a VSD. 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 Likely resolved. Does have heart murmur but not typical for a VSD repair and echo did not show any residual VSD. PFO present. (4) Nonsustained ventricular tachycardia: Code(s): I47.29 - Other ventricular tachycardia Status: Acute Assessment and Plan: Frequent PVCs and nonsustained ventricular tachycardia noted. At risk of sudden cardiac . --added beta-yamil --LifeVest ordered (5) Bifascicular block: Code(s): I45.2 - Bifascicular block Status: Acute Assessment and Plan: Bifascicular block, asymptomatic, noted. (6) Tobacco use: Code(s): Z72.0 - Tobacco use Status: Acute Assessment and Plan: Tobacco cessation encouraged (7) Cirrhosis: Code(s): K74.60 - Unspecified cirrhosis of liver Status: Acute Assessment and Plan: CT suggested patient has cirrhosis (8) Family history of cardiomyopathy: Code(s): Z82.49 - Family history of ischemic heart disease and other diseases of the circulatory system Status: Acute Assessment and Plan: Father of heart failure in his mid 50s. Uncle also had heart failure and had sudden cardiac in his mid 50s. (9) Recovering alcoholic in remission: Code(s): F10.21 - Alcohol dependence, in remission Status: Acute Assessment and Plan: Previously was an alcoholic, now drinks 2-4 drinks per day, 2 to 3 times a week. --Abstinence recommended Plan Agree with plan as documented from Cardiology. Hope to discharge patient after LifeVest application as office he continues to tolerate medication. Cardiology states they can up titrate medication clinic and he would be okay to after LifeVest. Time Spent With Patient Time with patient: 25 - 35 minutes Subjective Date/time seen: 12/13/22 10:51 Interval history: 12/10: Chief Complaint: Shortness of breath increasing over several days Narrative: This is a 57 year old male patient who presented to ER with progressive dyspnea on exertion worsening over the past week.? Patient has history of childhoo
--- NOTE | 2022-12-13 10:55 | PM.PNCARD ---
Progress Note: A&P Assessment and Plan (1) Acute combined systolic and diastolic ACC/AHA stage C congestive heart failure: Code(s): I50.41 - Acute combined systolic (congestive) and diastolic (congestive) heart failure Status: Acute Assessment and Plan: Patient presents with new onset of mild CHF, biventricular enlargement and hypokinesis. Perhaps and alcoholic cardiomyopathy or familial cardiomyopathy. Does not appear to be related to his congenital heart problems. No strong evidence of CAD. Patient feeling better with diuresis. Elevated troponins are likely secondary to CHF not CAD. Euvolemic and tolerating medications. --okay for discharge after LifeVest fitted --continue metoprolol, lisinopril, spironolactone, aspirin and diuretic therapy. Continue potassium to try to keep potassium levels higher. --eventual ischemia evaluation --extensive discussion with patient about his cardiomyopathy, medications, diet, recommended alcohol abstinence, tobacco cessation, office follow-up, reviewed Life Vest etc.. (2) Cardiomyopathy: Code(s): I42.9 - Cardiomyopathy, unspecified Status: Acute Assessment and Plan: Apparently a new cardiomyopathy. --limited echo showed evidence of PFO, but no VSD --perhaps eventually an MRI of the heart? --eventual ischemia evaluation (catheterization verses Bibi. If the catheterization is performed we can do a O2 sat run to be sure there is no evidence of residual VSD but there was none noted by echo. Does have heart murmur but not typical for a VSD. 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 Likely resolved. Does have heart murmur but not typical for a VSD repair and echo did not show any residual VSD. PFO present. (4) Nonsustained ventricular tachycardia: Code(s): I47.29 - Other ventricular tachycardia Status: Acute Assessment and Plan: Frequent PVCs and nonsustained ventricular tachycardia noted. At risk of sudden cardiac . --added beta-yamil --LifeVest ordered (5) Bifascicular block: Code(s): I45.2 - Bifascicular block Status: Acute Assessment and Plan: Bifascicular block, asymptomatic, noted. (6) Tobacco use: Code(s): Z72.0 - Tobacco use Status: Acute Assessment and Plan: Tobacco cessation encouraged (7) Cirrhosis: Code(s): K74.60 - Unspecified cirrhosis of liver Status: Acute Assessment and Plan: CT suggested patient has cirrhosis (8) Family history of cardiomyopathy: Code(s): Z82.49 - Family history of ischemic heart disease and other diseases of the circulatory system Status: Acute Assessment and Plan: Father of heart failure in his mid 50s. Uncle also had heart failure and had sudden cardiac in his mid 50s. (9) Recovering alcoholic in remission: Code(s): F10.21 - Alcohol dependence, in remission Status: Acute Assessment and Plan: Previously was an alcoholic, now drinks 2-4 drinks per day, 2 to 3 times a week. --Abstinence recommended Subjective Date/time seen: 12/13/22 10:55 Interval history: Cardiology follow up for CHF and new cardiomyopathy, possibly familial or alcoholic.. Echo showed RV and LV hypokinesis, EF 15-20%, moderate PI 12/12/2022: Feeling better today. Swelling has nearly resolved. He is less short of breath today. Requesting pt assistance for Life Vest. Added lisinopril. Date of service 12/13/2022: Feels close to normal, up and about in his room with no shortness of breath or dizziness, no edema. Tolerating medications with systolic blood pressure 107-127 mmHg. Echo: PFO present, no VSD. Tele: Occ PVCs (ap
--- NOTE | 2022-12-13 16:03 | PM.DS ---
DS: Admitting Diagnosis Discharge Date 12/13/2022 Admitting Diagnosis Congestive heart failure elevated troponin dyspnea on exertion hypertension DS: Discharge Diagnosis Discharge Diagnosis (1) Acute combined systolic and diastolic ACC/AHA stage C congestive heart failure: Code(s): I50.41 - Acute combined systolic (congestive) and diastolic (congestive) heart failure Status: Acute (2) Cardiomyopathy: Code(s): I42.9 - Cardiomyopathy, unspecified Status: Acute (3) History of congenital heart disease: Code(s): Z87.74 - Personal history of (corrected) congenital malformations of heart and circulatory system Status: Acute (4) Nonsustained ventricular tachycardia: Code(s): I47.29 - Other ventricular tachycardia Status: Acute (5) Bifascicular block: Code(s): I45.2 - Bifascicular block Status: Acute (6) Tobacco use: Code(s): Z72.0 - Tobacco use Status: Acute (7) Cirrhosis: Code(s): K74.60 - Unspecified cirrhosis of liver Status: Acute (8) Recovering alcoholic in remission: Code(s): F10.21 - Alcohol dependence, in remission Status: Acute DS: Summary Hospital Course Reason for hospitalization: This is a 57-year-old male patient who was admitted to the hospital due to prolonged dyspnea on exertion found to be in congestive heart failure. Hospital Course: Patient admitted with new onset congestive heart failure. Echocardiogram revealed left ventricular systolic dysfunction with an EF of approximately 15-20% as well as grade 2 diastolic dysfunction. Patient was treated aggressively with diuretics and improved rapidly. EKG showed bifascicular block (right bundle branch with posterior left fascicular block.) Patient was admitted to IMU on telemetry. He was noted to multifocal PVCs frequent runs of 5-17 beats of ventricular dysrhythmia. Patient had no syncope lightheadedness or dizziness. Cardiology was consulted. Patient was started on Coreg that was transitioned to metoprolol due to the ventricular dysrhythmias. After echo findings cardiology began adding additional medications to optimize patient medically. Unfortunately, patient does not have any insurance coverage at this time so he is not able to afford [employer] or Farxiga. Generic medications have been chosen to optimize therapy within patient's financial constraints. Additionally, LifeVest was ordered and patient was able to provide deposit in order to be fitted today for LifeVest. Dr. Lopez will follow patient clinic and continue increasing doses of medication as needed for optimal medical management. Additionally, patient applied for [place] Medicaid and further cardiac testing will be performed in future appointments. Status at Discharge Cognitive/behavioral status at discharge: Awake, alert, oriented x4 and very pleasant Functional status at discharge: independent ambulation Overall status at discharge: patient is progressing back to baseline Time Spent with Patient Time attestation: Total time spent providing and/or coordinating discharge services: Time spent: Greater than 30 minutes Exam Narrative: GENERAL: Well appearing, well-nourished, non-toxic, no respiratory distress HEAD: Normocephalic, atraumatic. NECK: Supple. No adenopathy, no masses. No JVD. RESPIRATORY: Airway patent, respirations nonlabored. Clear lung sounds, no wheezes or rhonchi noted. No stridor. CARDIOVASCULAR: Regular rate with irregular rhythm, murmur noted. Peripheral pulses 2+ and equal bilaterally. Cardiac telemetry shows sinus rhythm rate approximately 70 with fewer PVCs than previous ABDOMINAL: Soft, nontender, nondistended, no hepatosplenomegaly. Normoactive BS. MUSCULOSKELETAL: Moves all extremities. Strength/ROM intact without gross deformities. No peripheral edema, no calf tenderness. SKIN: Warm, dry, normal color. No rashes. NEURO: A&O X3. Speech clear. Cranial nerves II-XII gross
== END 2022-12-13 16:45 | disposition home or self-care (01) | DRG 194 ==
LOC: ANHED 18:39 → ANHIMU 21:24
PROVIDERS: Admitting Provider Internal Medicine; Emergency Provider Physician Assistant; Visit Provider Nurse Practitioner
DX: I11.0 Hypertensive heart disease with heart failure (principal); I47.29 Other ventricular tachycardia; I42.6 Alcoholic cardiomyopathy; I50.41 Acute combined systolic (congestive) and diastolic (congestive) heart failure; I42.8 Other cardiomyopathies; I45.2 Bifascicular block; K74.60 Unspecified cirrhosis of liver; J44.9 Chronic obstructive pulmonary disease, unspecified; F10.21 Alcohol dependence, in remission; F17.210 Nicotine dependence, cigarettes, uncomplicated; Z87.74 Personal history of (corrected) congenital malformations of heart and circulatory system; Z20.822 Contact with and (suspected) exposure to COVID-19
CPT/HCPCS: 36415; 71046; 71275; 80053; 83735; 83880; 84484; 85025; 85027; 85380; 85610; 85730; 87636; 93005; 93306; 93970; 94640; 96372; 96374; 96375; 96376; A9270; C8929; G0378; J1650; J1940; Q9957; Q9967

== ENCOUNTER 2022-12-16 15:43 | Outpatient (CLI) | payer SELFPAY ==
--- NOTE | ~2022-12-16 | US_ITS ---
EXAMINATION: US venous doppler UE LT DATE: 12/16/2022 16:11 INDICATION: Left upper limb pain. TECHNIQUE: Grayscale ultrasound images without and with compression and Doppler ultrasound images of the left upper extremity veins were obtained. COMPARISON: None. FINDINGS: The visualized portions of the left internal jugular vein, subclavian vein, axillary vein, brachial v eins, basilic vein, cephalic vein, radial vein, and ulnar vein are patent. IMPRESSION: 1. No deep venous thrombosis. Reviewed, dictated and finalized at location A.
== END 2022-12-16 15:44 | disposition home or self-care (01) ==
PROVIDERS: PCP Nurse Practitioner Family; Visit Provider Nurse Practitioner Adult Health
DX: M79.602 Pain in left arm (principal)
CPT/HCPCS: 93971

== ENCOUNTER 2023-01-28 18:13 | Emergency (ER) | payer SELFPAY ==
--- NOTE | ~2023-01-28 | XR_ITS ---
XR chest 2V DATE: 01/28/2023 19:00 INDICATION: Left-sided chest pain for one day. History of COPD, congestive heart failure TECHNIQUE: PA and lateral views COMPARISON: 12/10/2022 CTA chest 12/10/2022 2 view chest FINDINGS: Interval resolution of congestive changes since 12/10/2022. There is resolution of pulmonary vascular congestion and subpleural edema and small pleural effusion. The lungs are clear of infiltrate or consolidation. No pleural effusion or pulmonary venous congestio n or pneumothorax. Borderline heart size. IMPRESSION: Resolution of congestive changes since 12/10/2022 Borderline heart size No active pulmonary disease Reviewed, dictated and finalized at location A.
--- NOTE | 2023-01-28 18:14 | ECG_ITS ---
Measurements Intervals [place] Rate: 89 P: 59 UT: 168 QRS: 103 QRSD: 169 T: 62 QT: 394 QTc: 481 Interpretive Statements SINUS RHYTHM VENTRICULAR PREMATURE COMPLEX RIGHT AXIS DEVIATION LEFT ATRIAL ENLARGEMENT RIGHT BUNDLE BRANCH BLOCK MINIMAL Q WAVES- INFERIOR LEADS ABNORMAL ECG COMPARED TO ECG 12/10/2022 17:05:07 SINUS RHYTHM NOW PRESENT Electronically Signed On 01-29-2023 6:35:11 CDT by Jim Smith D.O.
[2023-01-28 18:21] VITALS: BP 134/104; PULSE 84; RESP 16; TEMP 36.3; O2SAT 96
[2023-01-28 18:33] LABS: Basophils Percent Auto 0.4 % (0.2-1.2); Eosinophils Absolute Auto 0.1 K/mm3 (0-0.3); Eosinophils Percent Auto 0.9 % (0-4.4); Hemoglobin 15.4 g/dL (14.0-18.0); Immature Granulocyte Absolute 0.05 K/mm3 (0.00-0.031); Immature Granulocyte Percent A 0.7 % (0-0.5); Lymphocytes Absolute Auto 1.61 K/mm3 (0.9-3.2); Lymphocytes Percent Auto 21.8 % (18.3-44.2); Mean Corpuscular HGB Conc 34.2 g/dl (32-36); Mean Corpuscular Volume 90.7 fl (80-100); Mean Platelet Volume 8.6 fl (7.4-10.4); Monocytes Absolute Auto 0.7 K/mm3 (0.1-0.6); Monocytes Percent Auto 9.5 % (2.6-8.5); Neutrophils Absolute Auto 4.9 K/mm3 (1.3-6.7); Neutrophils Percent Auto 66.7 % (45.5-73.1); Platelet Count Result 246 k/mm3 (150-375); Red Blood Count 4.96 M/mm3 (4.6-6.20); Red Cell Distribution Width 12.6 % (11.5-14.5); White Blood Count 7.4 K/mm3 (4.5-10.0)
[2023-01-28 18:43] LABS: Alanine Aminotransferase 26 U/L (6-50); Albumin Level 4.4 g/dL (3.5-5.1); Alkaline Phosphatase 104 U/L (38-126); Anion Gap 10 mmol/L (8-16); Aspartate Amino Transferase 37 U/L (17-59); Bilirubin,Total 0.7 mg/dL (0.2-1.3); Blood Urea Nitrogen 29 mg/dL (9-20); Calcium 9.3 mg/dL (8.4-10.2); Carbon Dioxide 22 mmol/L (22-30); Chloride 101 mmol/L (98-107); Estimated CRCL calculation 65 ml/min; Estimated Glomerular Filt Rate > 60; Glucose 104 mg/dL (65-110); Lipase 132 U/L (23-300); Potassium 4.2 mmol/L (3.4-5.0); Sodium 133 mmol/L (137-145)
[2023-01-28 18:48] LABS: INR 0.9; Prothrombin Time 11.9 Seconds (11.1-14.7)
[2023-01-28 18:49] LABS: Partial Thromboplastin Time 25.4 SECONDS (22.3-36.8)
[2023-01-28 18:55] LABS: Troponin I 0.017 ng/mL (0.000-0.034)
== END 2023-01-28 19:30 | disposition left against medical advice (07) ==
PROVIDERS: Emergency Provider Emergency Medicine; PCP Nurse Practitioner Family
DX: R07.9 Chest pain, unspecified (principal)
CPT/HCPCS: 36415; 71046; 80053; 83690; 84484; 85025; 85610; 85730; 93005; 99199

== ENCOUNTER 2023-03-26 09:53 | Day surgery (SDC) | payer BC, SELFPAY ==
[2023-03-26] VITALS (12 sets, daily range): BP systolic 100–128; BP diastolic 62–85; PULSE 39–68; RESP 12–20; TEMP 37.1; O2SAT 95–100; BMI 21.9
[2023-03-26 08:10] LABS: Basophils Absolute Auto 0.1 K/mm3 (0.0-0.1); Basophils Percent Auto 1.3 % (0.2-1.2); Eosinophils Absolute Auto 0.2 K/mm3 (0-0.3); Eosinophils Percent Auto 2.8 % (0-4.4); Hematocrit 44.2 % (42.0-52.0); Hemoglobin 14.8 g/dL (14.0-18.0); Immature Granulocyte Absolute 0.04 K/mm3 (0.00-0.031); Immature Granulocyte Percent A 0.7 % (0-0.5); Lymphocytes Absolute Auto 1.22 K/mm3 (0.9-3.2); Mean Corpuscular HGB Conc 33.5 g/dl (32-36); Mean Corpuscular Hemoglobin 32.4 pg (26-34); Mean Corpuscular Volume 96.7 fl (80-100); Mean Platelet Volume 9.2 fl (7.4-10.4); Monocytes Absolute Auto 0.6 K/mm3 (0.1-0.6); Monocytes Percent Auto 9.5 % (2.6-8.5); Neutrophils Percent Auto 65.7 % (45.5-73.1); Platelet Count Result 230 k/mm3 (150-375); Red Blood Count 4.57 M/mm3 (4.6-6.20); Red Cell Distribution Width 14.4 % (11.5-14.5); White Blood Count 6.1 K/mm3 (4.5-10.0)
[2023-03-26 08:13] LABS: Anion Gap 12 mmol/L (8-16); Blood Urea Nitrogen 17 mg/dL (9-20); Calcium 9.2 mg/dL (8.4-10.2); Carbon Dioxide 25 mmol/L (22-30); Chloride 103 mmol/L (98-107); Estimated CRCL calculation 66 ml/min; Estimated Glomerular Filt Rate > 60; Glucose 99 mg/dL (65-110); Potassium 3.9 mmol/L (3.4-5.0); Sodium 140 mmol/L (137-145)
--- NOTE | 2023-03-26 08:48 | PM.IMHP ---
H&P: HPI History of Present Illness Date/Time: 03/26/23 08:48 Chief Complaint: Cardiomyopathy, history CHF and congenital heart disease, here for right and left heart catheterization Narrative: Tulio Tobar this is a 57-year-old male who was found to have new onset of CHF and cardiomyopathy in December 2022 with ejection fraction 15-20%. He has a history of VSD closure when he was 4 years old, tobacco use and alcohol use. Echo suggests a PFO but no VSD. He has been wearing a LifeVest. he has been placed on guideline directed medical therapy and is here for a heart catheterization to evaluate for underlying CAD and patency of his VSD repair. He is feeling well, some RODRIGUEZ with heavy exertion but no edema or chest pain. He has been NPO. Review of Systems Constitutional: Constitutional: Denies fever(s) Eyes: Eyes: Reports no additional eye complaints ENT: Denies epistaxis Cardiovascular: Cardiovascular: Denies chest pain, Denies pedal edema, Denies lightheadedness and Reports dyspnea Comments: Can walk up stairs and do his job with no problems but if his dog pulse amount of brisk walking may have some RODRIGUEZ. Respiratory: Respiratory: Denies chest congestion, Denies dyspnea and Reports dyspnea on exertion Gastrointestinal: Gastrointestinal: Denies abdominal pain and Denies hematochezia Genitourinary: Genitourinary: Denies hematuria Comments: Inguinal hernia Musculoskeletal: Musculoskeletal: Reports no additional musculoskeletal complaints Integumentary/Breasts: Skin/Breast: Reports system reviewed and no additional complaints, except as docu Neurologic: Reports system reviewed and no additional complaints, except as documented and Denies behavioral changes Psychiatric: Psychiatric: Denies behavioral changes [facility] Past Medical History Medical History Bifascicular block Chronic systolic (congestive) heart failure Cirrhosis COPD (chronic obstructive pulmonary disease) Family history of cardiomyopathy Nonsustained ventricular tachycardia Recovering alcoholic in remission Tobacco use Surgical History Surgical History History of heart surgery Probable VSD repair when he was 4 years old History of open heart surgery age 4 Family History Family History Father Heart disease of heart failure in his mid 50s Other Heart disease Uncle had heart failure and of sudden cardiac in his mid 50s Daughter Systemic sclerosis Daughter of this disease Social History Social History Social History: Lives at home with significant other Smoking packs per day: 1 Smoking cigarettes per day: 20.0 Years smoked: 40 Smoking pack-years: 40.00 Smoking status: Current every day smoker Tobacco type: cigarettes Second hand tobacco smoke exposure: Yes Alcohol intake: never Drinks per week: 10 Alcohol use details: 2-4 drinks per day, 2-3 days per week Substance use: never Substance use type: does not use Lack of Transportation: No Lack of Food: Never True Current Housing: I Have Housing Concerned About Future Housing: No Difficulty Paying Gas/Electric Bills: No Difficulty Paying for Meds: No Currently Unemployed: No Education: High School Diploma/GED Difficulty w/ Childcare or Family Care: No Gender identity (if verbalized by the patient): Male Sexual Orientation (if Verbalized by the Patient): Straight or Heterosexual Spiritual care concerns: No Meds Home Medications and Allergies Home Medications Medication Instructions Recorded Confirmed Type aspirin 81 mg chewable tablet 81 mg PO DAILY@0800 #90 tabs 12/13/22 03/26/23 Rx (Children's Aspirin) furosemide 20 mg tablet 20 mg PO DAILY #90 tabs 12/13/22 03/26/23 Rx lisinopril 5 mg tablet 5 mg PO QAM #90 tab
--- NOTE | 2023-03-26 08:55 | WPDMODSED ---
Moderate Sedation Note-Pt Data Patient Data Diagnosis: Cardiomyopathy, history of VSD repair Present Complaint: New onset of CHF in December 2022 Procedure to be performed/Plan: Conscious sedation Right and left heart catheterization Allergies Allergy/AdvReac Type Severity Reaction Status Date / Time tramadol Allergy Itching Verified 03/26/23 07:56 Home Medications Medication Instructions Recorded Confirmed Type aspirin 81 mg chewable tablet 81 mg PO DAILY@0800 #90 tabs 12/13/22 03/26/23 Rx (Children's Aspirin) furosemide 20 mg tablet 20 mg PO DAILY #90 tabs 12/13/22 03/26/23 Rx lisinopril 5 mg tablet 5 mg PO QAM #90 tabs 12/13/22 03/26/23 Rx metoprolol succinate 25 mg 75 mg PO QAM #90 tabs 12/13/22 03/26/23 Rx tablet,extended release 24 hr (Toprol XL) pantoprazole 20 mg tablet,delayed 20 mg PO Q12HR #60 tabs 12/13/22 03/26/23 Rx release (Protonix) potassium chloride 20 mEq 20 meq PO DAILY #90 tabs 12/13/22 03/26/23 Rx tablet,extended release (K-Tab) spironolactone 25 mg tablet 25 mg PO QAM #90 tabs 12/13/22 03/26/23 Rx Current Medications: Active Medications Sodium Chloride (Normal Saline Iv) 500 mls @ 100 mls/hr IV CONT .Q5H MAHESH Sedation/Anesthesia: No previous sedation/anesthesia problems (including family history). [facility] Past Medical History Medical History Bifascicular block Chronic systolic (congestive) heart failure Cirrhosis COPD (chronic obstructive pulmonary disease) Family history of cardiomyopathy Nonsustained ventricular tachycardia Recovering alcoholic in remission Tobacco use Surgical History Surgical History History of heart surgery Probable VSD repair when he was 4 years old History of open heart surgery age 4 Family History Family History Father Heart disease of heart failure in his mid 50s Other Heart disease Uncle had heart failure and of sudden cardiac in his mid 50s Daughter Systemic sclerosis Daughter of this disease Social History Social History Social History: Lives at home with significant other Smoking packs per day: 1 Smoking cigarettes per day: 20.0 Years smoked: 40 Smoking pack-years: 40.00 Smoking status: Current every day smoker Tobacco type: cigarettes Second hand tobacco smoke exposure: Yes Alcohol intake: never Drinks per week: 10 Alcohol use details: 2-4 drinks per day, 2-3 days per week Substance use: never Substance use type: does not use Lack of Transportation: No Lack of Food: Never True Current Housing: I Have Housing Concerned About Future Housing: No Difficulty Paying Gas/Electric Bills: No Difficulty Paying for Meds: No Currently Unemployed: No Education: High School Diploma/GED Difficulty w/ Childcare or Family Care: No Gender identity (if verbalized by the patient): Male Sexual Orientation (if Verbalized by the Patient): Straight or Heterosexual Spiritual care concerns: No Mod Sed Physical Exam Physical Exam Pre Procedural Exam: Normal: Appearance, Eyes, Ears, Nose, Neck, Throat, Lungs, Heart Size (2-3/6 LINDA right lower sternal border), Heart Rate, Heart Rhythm, Neuro Exam, Abdomen, Liver, Extremities (Intact femoral and dorsalis pedis pulses) and Skin and Variation: Airway (Missing most teeth) Hours since solid foods: 12 Hours since liquid intake: 12 Mallampati Classification: class II Internal Medicine - PN: Obj Da Vital Signs Vital Signs: Vital Signs - 24 hr 03/26/23 07:42 Temperature 98.8 F Pulse Rate 55 L Respiratory Rate 14 Blood Pressure 128/67 Pulse Oximetry 97 Oxygen Delivery Room Air Meds/Results Medications: Active Medications Generic Name Dose Route Start Last Admin Trade Name Freq PRN Reason Stop Dose Admin Sodium Chloride
--- NOTE | 2023-03-26 10:38 | PM.OP ---
Procedure Note - Brief Procedure Note - Brief Date of procedure: 03/26/23 cardiomyopathy Procedure performed: Conscious sedation Right heart catheterization with O2 saturation run and thyroid dilution cardiac outputs Left heart catheterization Surgeon: Alyssa Benitez MD Findings: Mild CAD involving the circumflex Normal pulmonary pressures No evidence of residual [id number]-ja-lnoph shunt Description of procedure: Uneventful procedure.
--- NOTE | 2023-03-26 10:40 | WPDCARDPROC ---
Cardiac Cath Procedure Note Date of procedure:: 03/26/23 Performing physician:: Alyssa Benitez MD Indication:: New cardiomyopathy 12/2022, CHF, history of VSD repair Brief clinical history:: Tulio cabral is a 57-year-old male who was found to have new onset of CHF and cardiomyopathy in December 2022 with ejection fraction 15-20%.? He has a history of VSD closure when he was 4 years old, tobacco use and alcohol use.? Echo suggests a PFO but no VSD.? He has been wearing a LifeVest.? He has been placed on guideline directed medical therapy and is here for a heart catheterization to evaluate for underlying CAD and patency of his VSD repair.?? Procedure Procedure performed:: Conscious sedation Right heart catheterization with O2 saturation run and thermodilution cardiac outputs Left heart catheterization Selective Coronary angiography Left ventriculography Angiography of the left common femoral artery Sedation/Medication given:: Conscious sedation: The patient has no known prior history of adverse affects of conscious sedation. Oropharynx was clear. The patient is deemed a good candidate for conscious sedation. Conscious sedation began at: 9:13 a.m. Conscious sedation ended at: 10:18 a.m. Total conscious sedation time: 65 minutes Medications: Versed 1 mg, fentanyl 50 mcg IV push The patient had continuous hemodynamic monitoring, and was also continuously monitored by: Yudith Irvin R.N. The patient tolerated conscious sedation well. Access site:: right femoral artery and vein Estimated blood loss:: 10 cc Procedure note:: Catheters: 5 Kenyan arterial sheath, 5 Kenyan 4 cm right and left Rika catheters, 5 Kenyan pigtail catheter, 7 Kenyan venous sheath, 7 Kenyan [place]-Varsha catheter Detailed procedure: After informed consent the patient brought to the manufacturing lab technician and the right femoral area was prepped and draped in the usual fashion. After conscious sedation and local anesthesia the right femoral artery was punctured and cannulated with the arterial sheath. the right common femoral vein was punctured and can lead with the venous sheath. The Oakland-Varsha catheter was advanced up into the right heart. O2 saturations were obtained in the right atrium and right ventricle. After some manipulation, the catheter was passed through the pulmonary valve and out into the wedge position. Pressure measurements were obtained as well as thermodilution cardiac outputs and further O2 saturations. Then the Oakland-Varsha catheter was removed. Selective Coronary angiography was performed with the coronary catheters in multiple projections. These were withdrawn. The pigtail catheter was advanced into the central circulation and left ventricle for pressure measurements and left ventriculography which was performed in the CARLSON projection. This was withdrawn. Angiography of the right common femoral was performed and the sheath was is suitable position for a vascular closure device. Later the arterial sheath was removed and hemostasis was obtained using an Angio-Seal device and local pressure. The patient tolerated the procedure well with no complications. Estimated blood loss was negligible. Findings:: Pressures: Mean right atrial pressure 5 mmHg, RV 35/6, PA 30/4, mean PA pressure 15 mmHg, mean wedge pressure 10 mmHg, LV 120/13 mmHg and aorta 120/60 mmHg. Go to saturations: Right atrium 72%, right ventricle 67%, pulmonary artery 70%, wedge 74%, aorta 90%. Cardiac output by Thermodilution: cardiac output was 4.1 liters/minute and cardiac index was 2.5 liters/minute per meter squared. Cardiac output by Randi: 3.0 liters/minute with cardiac index of 1.8 liters/minute per meter squared. Left coronary artery: The left main was very short, almost double barrelled. The left main and Left anterior descending were widely patent and free of disease. The circumflex was a large vessel, supplying the posterolateral and inferior fraga with multi
== END 2023-03-26 13:56 | disposition home or self-care (01) ==
PROVIDERS: PCP Nurse Practitioner Family; Visit Provider Internal Medicine Cardiovascular Disease
PROC: 4A023N8 Measurement of Cardiac Sampling and Pressure, Bilateral, Percutaneous Approach (ICD-10-PCS; CPT 93453; principal; 2023-03-26 08:30)
DX: I42.9 Cardiomyopathy, unspecified (principal); I50.22 Chronic systolic (congestive) heart failure; Q21.0 Ventricular septal defect; Z98.890 Other specified postprocedural states; Z95.811 Presence of heart assist device; I25.10 Atherosclerotic heart disease of native coronary artery without angina pectoris; J44.9 Chronic obstructive pulmonary disease, unspecified; K70.30 Alcoholic cirrhosis of liver without ascites; F17.210 Nicotine dependence, cigarettes, uncomplicated; F10.21 Alcohol dependence, in remission; Z82.49 Family history of ischemic heart disease and other diseases of the circulatory system; Z79.82 Long term (current) use of aspirin; Z79.899 Other long term (current) drug therapy
CPT/HCPCS: 36415; 80048; 85025; 93460; C1760; C1769; C1894; G0269; J1644; J2250; J3010; J7040

== ENCOUNTER 2023-03-30 13:52 | Outpatient (CLI) | payer BC, SELFPAY ==
--- NOTE | ~2023-03-30 | CT_ITS ---
EXAMINATION: CT lung screening DATE: 03/30/2023 14:22 INDICATION: Personal history nicotine dependence, current smoker with 40 pack year history TECHNIQUE: Computed tomography (CT) of the chest was performed without intravenous contrast. The dose -length product (DLP) was 70.99 mGy-cm. Automated exposure control and iterative reconstruction techn Curriculetue were employed. COMPARISON: 12/10/2022 FINDINGS: There is mild emphysema. Small pulmonary nodules measure up to 3 mm in the right lower lobe . The lungs are free of acute opacities. No pleural effusion or pneumothorax. No pathologically enlar ged thoracic lymph nodes are identified. The heart size is normal. There is mild bilateral gynecomast ia. There is nodularity of the liver surface. Cysts of the partially imaged left kidney measure up to 6.2 cm. There is mild thoracic spondylosis. IMPRESSION: 1. Lung-RADS category 2: Benign appearance or behavior. Continue annual screening with noncontrast lo w-dose chest CT in 12 months. Reviewed, dictated and finalized at location [facility]. ER MESSENGER IMPRESSION: 1. Lung-RADS category 2: Benign appearance or behavior. Continue annual screeni ng with noncontrast low-dose chest CT in 12 months.
== END 2023-03-30 13:53 | disposition home or self-care (01) ==
PROVIDERS: PCP Registered Nurse; Visit Provider Registered Nurse
DX: Z12.2 Encounter for screening for malignant neoplasm of respiratory organs (principal); F17.210 Nicotine dependence, cigarettes, uncomplicated
CPT/HCPCS: 71271